=== PATIENT | male | born 1945 | race Caucasian/White ===

== ENCOUNTER → 2018-10-01 | Outpatient (CLI) | payer BC, MEDICARE, OTHER ==
[~2018-10-01] MED LIST: B COMPLEX1 EACH; CALCIUM600 MG; PROAIR HFA INH8.5 GM INH; VITAMIN D400 UNIT PO; XARELTO10 MG PO
--- NOTE | 2018-10-01 12:06 | Diagnostic Imaging Report ---
PROCEDURE: X-RAY CHEST, TWO VIEWS COMPARISON: Patients [facility], DX, RIBS UNILAT W/ CXR, 01/26/2011, 11:49. INDICATIONS: COUGH FINDINGS: LUNGS: Right upper lobe pulmonary nodule is slightly larger but still likely a benign process. Opacity in the lung bases represents scarring. PLEURA: No effusions or pneumothorax. HEART & MEDIASTINUM: The heart is within normal size-limits. Focal eventration of the right hemidiaphragm. BONES & SOFT TISSUES: No acute findings. Degenerative changes of the spine. Mild compression deformity of one of the midthoracic spine vertebral bodies likely is old. CONCLUSION: No acute thoracic abnormality. Milton Turpin D.O. Dictated by: Milton Turpin D.O. on 10/01/2018 at 12:16 Electronically approved by: Milton Turpin D.O. on 10/01/2018 at 12:16
== END ==
LOC: RAD 08:34
PROVIDERS: ATTEND Internal Medicine
DX: J44.1 Chronic obstructive pulmonary disease with (acute) exacerbation (principal)
CPT/HCPCS: 71046

== ENCOUNTER 2018-11-16 08:36 | Observation (INO) | payer BC, MEDICARE, OTHER ==
[~2018-11-16] VITALS: Ht 167.6 cm; Wt 93.1 kg
[2018-11-16] MEDS ORDERED: B COMPLEX1 EACH (08:49)
[2018-11-16] MEDS ORDERED: VITAMIN D400 UNIT PO (08:49)
[2018-11-16] MEDS ORDERED: CALCIUM600 MG (08:49)
[2018-11-16] MEDS ORDERED: PROAIR HFA INH8.5 GM INH (08:54)
[2018-11-16 09:25] LABS: BASOPHILS # (AUTO) 0.1 (0.0-0.1); BASOPHILS % 0.7 % (0.0-1.0); EOSINOPHILS # (AUTO) 0.2 (0.0-0.4); EOSINOPHILS % 3.3 % (0.0-6.0); HEMATOCRIT 44.8 % (38.2-49.6); HEMOGLOBIN 15.2 g/dL (14.0-18.0); LYMPHOCYTES # (AUTO) 1.7 (1.0-3.2); LYMPHOCYTES % 23.3 % (18.0-39.1); MEAN CORPUSCULAR HEMOGLOBIN 29.1 pg (28-32); MEAN CORPUSCULAR HGB CONC 33.9 g/dL (31-35); MEAN CORPUSCULAR VOLUME 85.8 fL (81-99); MONOCYTES # (AUTO) 0.6 (0.2-0.8); MONOCYTES % 8.2 % (4.4-11.3); NEUTROPHILS # (AUTO) 4.5 (2.1-6.9); NEUTROPHILS % 64.2 % (38.7-80.0); PLATELET COUNT 179 x10e3/uL (140-360); RED BLOOD COUNT 5.22 x10e6/uL (4.3-5.7); RED CELL DISTRIBUTION WIDTH 13.7 % (11.7-14.4)
--- NOTE | 2018-11-16 09:30 | NUR ---
RECEIVED PT IN ER RM 6 FROM TRIAGE WITH C/O SWELLING AND PAIN TO LT CALF, STARTED LAST NIGHT. PT REPORTS HIS MEASURED CALVES AND LEFT IS LARGER THAN RIGHT. THERE IS SLIGHT SWELLING NOTED TO LT CALF AT THIS TIME. CALVES MEASURED AND RIGHT CALF IS 15.5" AND LEFT CALF IS 16". NO WOUNDS OR BRUISING NOTED AT THIS TIME. PT DENIES PAIN AT THIS TIME. SL STARTED, BLOOD COLLECTED AND SENT TO LAB WITH URINE. PT ON CARDIAC, B/P AND PULSE OX MONITOR. EKG COMPLETED AND SIGNED BY DR. HEREDIA. PENDING RESULTS OF ALL STUDIES AT THIS TIME AND PT/ AWARE OF THIS.
--- NOTE | 2018-11-16 09:40 | Diagnostic Imaging Report ---
EXAMINATION: CHEST SINGLE (PORTABLE) COMPARISON: 10/01/2018 INDICATION: ^LE EDEMA ^[id number] ^0920 DISCUSSION: Frontal view of the chest obtained at 0913 hours. HEART AND MEDIASTINUM: The cardiomediastinal silhouette is unremarkable. LINES: None. LUNGS: Stable eventration of the right diaphragm. The lungs are well-inflated suggestive of small airways disease. Minimal discoid atelectasis over the right diaphragm. No pneumonia or pulmonary edema. PLEURA: No pleural effusion or pneumothorax. BONES AND SOFT TISSUES: No focal osseous lesion. The soft tissues are normal. IMPRESSION: Stable pulmonary hyperinflation and discoid atelectasis of the right lung base. No acute cardiopulmonary process. Signed by: Dr. Dionicio Partida MD on 11/16/2018 9:36 AM
[2018-11-16 09:47] LABS: ALANINE AMINOTRANSFERASE 26 IU/L (0-55); ALBUMIN 3.3 g/dL (3.5-5.0); ALKALINE PHOSPHATASE 59 IU/L (40-150); ANION GAP 12.2 mmol/L (8-16); BLOOD UREA NITROGEN 11 mg/dL (7-26); BUN/CREATININE RATIO 11 (6-25); CARBON DIOXIDE 23 mmol/L (22-29); CHLORIDE 104 mmol/L (98-107); CREATINE KINASE 110 IU/L (30-200); CREATININE, SERUM 0.96 mg/dL (0.72-1.25); EST GLOMERULAR FILTRATION RATE > 60 ML/MIN (60-); GLUCOSE 100 mg/dL (74-118); MAGNESIUM 2.2 MG/DL (1.3-2.1); POTASSIUM 4.2 mmol/L (3.5-5.1); SODIUM 135 mmol/L (136-145)
[2018-11-16 09:48] LABS: INR 0.87; PROTHROMBIN TIME 12.6 seconds (11.9-14.5)
--- NOTE | 2018-11-16 10:05 | NUR ---
VICE PRESIDENT PLANNING AT BEDSIDE FOR STUDY ORDERED.
[2018-11-16 10:12] LABS: PARTIAL THROMBOPLASTIN TIME 30.5 seconds (23.8-35.5)
[2018-11-16] MEDS ORDERED: SODIUM CHLORIDE 0.9% 500ML 500 ML IV ONE (10:15)
[2018-11-16] MEDS: ENOXAPARIN SODIUM INJ 100 MG/ML SYR SC SCH ×2 (10:25→21:53)
[2018-11-16 10:50] LABS: CLARITY,URINE CLEAR (CLEAR); COLOR,URINE YELLOW (YELLOW); LEUKOCYTE ESTERASE ,URINE NEGATIVE (NEGATIVE); NITRITE,URINE NEGATIVE (NEGATIVE); PROTEIN,URINE DIPSTICK NEGATIVE (NEGATIVE)
[2018-11-16 10:51] LABS: BILIRUBIN,URINE NEGATIVE (NEGATIVE); KETONES,URINE NEGATIVE (NEGATIVE); URINE UROBILINOGEN 0.2 mg/dL (0.2 - 1)
[2018-11-16 10:54] LABS: EPITHELIAL CELLS,URINE RARE /LPF; RBC,URINE 0-5 /HPF (0-5)
[2018-11-16] MEDS ORDERED: ONDANSETRON HCL INJ 2 MG/ML VIAL IV PRN (11:45)
--- NOTE | 2018-11-16 11:59 | Diagnostic Imaging Report ---
CT chest pulmonary embolism protocol CPT code: 75881 INDICATION: Leg swelling, DVT ^PE PROTOCOL ^[id number] ^1030 TECHNIQUE: Thin collimation axial images obtained through the level of the pulmonary arteries with additional imaging through the chest following the uneventful administration of 100 cc of low osmolar, nonionic intravenous contrast. Images reconstructed into coronal and sagittal MIPs for complete evaluation of the tortuous and overlapping pulmonary vascular structures and to reduce patient radiation dose. RADIATION DOSE: Total DLP: 623.0 mGy*cm Estimated effective dose: (DLP x 0.015 x size factor) mSv CTDIvol has been reviewed. It is below the limits set by the Radiation Protocol Committee (RPC). COMPARISON: Chest x-rays 11/16/2018, 10/01/2018. FINDINGS: Pulmonary artery: No filling defects are appreciated within the main, left, right, lobar or visualized segmental pulmonary arteries to suggest embolism. Main pulmonary artery measures 2.5 cm. Aorta: Mildly ectatic. No aneurysmal dilatation. No dissection. Lymph nodes: No enlarged axillary, supraclavicular, mediastinal, or hilar lymph nodes.. Thyroid: Normal in size without mass in the visualized parenchyma.. Mediastinum: The heart is top normal in size. Mild to moderate burden of coronary artery calcification. No pericardial effusion. There is a small hiatal hernia. Lungs: Right Lung: Mild burden of centrilobular emphysema. Nodule in the inferior upper lobe measures 5 mm. There is subsegmental atelectasis of the base of the lung over the diaphragm. No consolidation. Left Lung: Mild burden of centrilobular emphysema. Nodule the posterior lower lobe measures 6 mm (series 3, image 68). Nodule in the posterior lower lobe measures 0.9 x 1.1 cm (series 3, image 83). There is basilar atelectasis. Small focus of atelectasis or scar in the posterior lingula. Airways: Diffuse bronchial wall thickening. The airways are patent. Pleura: Calcified pleural plaque in the posterior left chest. Noncalcified pleural plaques in the anterior right chest and anterior left chest. No pleural effusions. Abdomen: Fatty atrophy of the pancreas. Diverticulosis coli.. Bones: Mild to moderate degenerative changes of the midthoracic spine with mild height loss of the T7, T8, and T9 vertebral bodies. The spinal canal is widely patent. No lytic or blastic lesions. Soft tissues: Unremarkable.. IMPRESSION: 1. No evidence of pulmonary embolus or aortic dissection. 2. Centrilobular emphysema and bibasilar atelectasis. Pulmonary nodules should be followed annually to confirm stability. 3. Calcified pleural plaques suggestive of asbestos exposure. Signed by: Dr. Dionicio Partida MD on 11/16/2018 11:56 AM
--- NOTE | 2018-11-16 13:22 | NUR ---
ATTEMPTED TO CALL REPORT, NURSE UNAVAILABLE AT THIS TIME. INFORMED MY CHARGE NURSE, TENZIN GEIGER OF THIS. WILL CALL BACK IN ABOUT 10 MINS REQUESTED.
[2018-11-16 13:45] VITALS: BP 140/77
[2018-11-16 13:56] VITALS: BP 140/77
--- NOTE | 2018-11-16 14:02 | History and Physical ---
CHIEF COMPLAINT: 1. Left leg pain. 2. Left leg swelling. HPI: This is 73-year-old male with a past medical history of DVT, PE in 2017 treated by Xarelto for 1 year, recently stopped few months ago Xarelto. The patient usually followed by Dr. Juan To, development manager. The patient had swelling of the left leg and pain since last few days. The patient was sent to ER today. In ER venous Doppler shows DVT. CT of the chest is pending, but no chest pain. No shortness of breath. No fever. No cough. No wheezing. No diarrhea. No constipation. No hematemesis, no hematuria, no melena. ALLERGIES: NO KNOWN DRUG ALLERGIES. PAST MEDICAL HISTORY 1. DVT, left leg. 2. Pulmonary embolism. 3. COPD. PAST SURGICAL HISTORY: None. HABITS: Quit smoking 40 years ago, quit drinking alcohol 40 years ago. No illicit drug use. SOCIAL HISTORY: Patient is , lives with his . Patient is retired for last few years. FAMILY HISTORY: No family history of DVT, PE or cancer. MEDICATION: None. REVIEW OF SYSTEMS GENERAL: Generalized fatigue and weakness. HEENT: No diplopia, no blurring of vision. CARDIOPULMONARY: No chest pain, no shortness of breath, no cough. ALIMENTARY SYSTEM: No nausea, no vomiting, no diarrhea, no constipation, no hematemesis, no melena. GENITOURINARY SYSTEM: No dysuria, no hematuria. MUSCULOSKELETAL SYSTEM: No joint pain. CENTRAL NERVOUS SYSTEM: No focal weakness. PHYSICAL EXAMINATION GENERAL: This is a 73-year-old male, who is alert and oriented x3. VITAL SIGNS: Temperature 98.7, pulse 83, respiratory rate 18, blood pressure 143/86. HEENT: Head atraumatic, normocephalic. Pupils are bilaterally equal and reactive to light. Extraocular muscles intact. Conjunctivae normal. Sclerae normal. Tongue is dry. NECK: Supple. No JVD, no carotid bruit. LUNGS: Clear to auscultation and percussion bilaterally. No added sounds. No wheezing. No rhonchi. HEART: S1 and S2. Regular rate and rhythm. No S3, no S4. No murmur. ABDOMEN: Soft. Nontender. No guarding, no rigidity. EXTREMITIES: Left leg calf tenderness, swelling, mild edema on right leg. Positive Homans signs. WOOD MECHANIST: Grossly nonfocal. LABORATORY DATA: CT of chest pending. Chest x-ray is normal. Chest x-ray shows stable pulmonary right lung base. CBC is normal. Urine is normal except trace blood. We will watch it. Sodium 135, potassium is normal at 4.2. BUN and creatinine is normal. Magnesium 2.2, albumin 3.3, LFT is normal. ASSESSMENT 1. 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 2. Past medical history of deep venous thrombosis and pulmonary embolism in 2017. 3. History of chronic obstructive pulmonary disease. PLAN: Venous Doppler and CT of the chest. Hematology consult by Dr. Juan To. Lovenox 90 mg subcutaneous q.12. Add Protonix 40 q.daily. CBC and BMP in the morning. Case discussed with patient and ER doctor. Condition and prognosis guarded. Job#: [id number] BROCK
[2018-11-16 16:05] VITALS: BP 128/81
[2018-11-16] MEDS ORDERED: IOPAMIDOL 370 MG/ML 200 ML INFUS..BTL INJ ONE (16:57)
[2018-11-16] MEDS ORDERED: SODIUM CHLORIDE 0.9% 50ML 50 ML ONE (16:57)
[2018-11-16 20:00] VITALS: BP 124/85
--- NOTE | 2018-11-16 22:45 | Consultation ---
DATE OF CONSULTATION: November 16, 2018 REQUESTING PHYSICIAN: Gold Pires MD SERVICE: Hematology/Oncology. REASON FOR CONSULTATION: Evaluation and management of patient with recurrent deep vein thrombosis. HISTORY OF PRESENTING ILLNESS: Mr. Kim is a very pleasant 73-year-old gentleman who is very well known to me as he is my clinic patient who was initially diagnosed with left leg deep vein thrombosis along with pulmonary embolism back in 2017, subsequently treated with anticoagulation with Xarelto for almost a year. He did well and underwent preventive screening which did not reveal any underlying disease process to cause thromboembolic disease. He did have pulmonary nodule, which remained stable. After discussion with the Pulmonary and Primary Service, the patient was taken off of anticoagulation. Today, he called with the complaint of left leg pain and swelling, which started a few days ago and got worsened, subsequently suggestive to come to the Emergency Department for further evaluation and recommendation. In the Emergency Department, he underwent Doppler of left lower leg revealing superficial femoral vein, popliteal vein and posterior tibial vein thrombosis resulting in started on anticoagulation with Lovenox and admitted to in-patient floor. The patient was recommended to get a CT of the chest to rule out pulmonary embolism. Presently, the patient is lying comfortably, not in acute distress, and breathing normally. Denies any nausea, vomiting, fever, chills, headache or blurring of vision. No genitourinary complaints. He also denies any recent trauma, travel, immobilization, or taking any hormonal agent. PAST MEDICAL HISTORY 1. Left leg DVT in 2017. 2. Pulmonary embolism in 2017. 3. COPD/emphysema. 4. Stable pulmonary nodule. PAST SURGICAL HISTORY: None. SOCIAL HISTORY: The patient is a former smoker, but quit long time ago. Denies alcohol use or illicit drug use. He lives with his . FAMILY HISTORY: No history of thromboembolic disease or cancer. ALLERGIES: No known drug allergies. CURRENT MEDICATIONS: Reviewed and as per electronic medical record. REVIEW OF SYSTEMS: A 14-point review of systems is negative except as mentioned above in history of presenting illness. PHYSICAL EXAMINATION VITAL SIGNS: Reviewed and as per electronic medical record. HEENT: PERRLA. Extraocular movements are intact. Head is atraumatic and normocephalic. NECK: Supple. CVS: S1, S2 audible. RESPIRATORY: Decreased bilateral air entry. ABDOMEN: Soft. Positive bowel sounds. EXTREMITIES: Left leg swelling. Negative cyanosis. NEURO: The patient is alert, awake and oriented. LABORATORY DATA: White blood cell count of 7.0, hemoglobin 15.2, hematocrit 44.8, and platelets 179. BUN 11 and creatinine 0.9. ASSESSMENT AND PLAN: Mr. Kim is a very pleasant 73-year-old gentleman who is very well known to me as he is my clinic patient and has a history of thromboembolic disease including left leg DVT and pulmonary embolism diagnosed back in 2017, subsequently treated with anticoagulation and completed 1 year of therapy approximately 4 months ago. Today, he is presented again with left leg swelling, which has started few days ago, subsequently underwent Doppler of lower extremity in the Emergency Department revealing left superficial femoral, popliteal and posterior tibial vein thrombosis. He also underwent CT angiogram which remained negative for pulmonary embolism; however, did show a stable pulmonary nodule as well as emphysema. The patient has been started on anticoagulation with Lovenox which he is tolerating well. I have reviewed the record and discussed current disease status with the patient in detail. Overall, this appeared to be unprovoked event of recurrent deep vein thrombosis. I have recommended him to be on anticoagulation indefinitely. He has been recommended to be switched to Xarelto 15 mg p.o. twice a day starting tomorrow morning. If he stays stable, he can be discharged tomorrow with instructions to follow with me in the outpatient setting. Pulmonary nodule: The patient has pulmonary nodule, which appeared to be stable, though need followup scans. Thank you Dr. Pires for the consult. I will continue to be available. Please call me with questions. Job#: [id number] ANDREW
[2018-11-17] VITALS: BP 149/82
[2018-11-17 04:00] VITALS: BP 143/71
[2018-11-17 04:53] LABS: BASOPHILS # (AUTO) 0.1 (0.0-0.1); BASOPHILS % 0.8 % (0.0-1.0); EOSINOPHILS # (AUTO) 0.3 (0.0-0.4); EOSINOPHILS % 3.7 % (0.0-6.0); HEMATOCRIT 43.2 % (38.2-49.6); HEMOGLOBIN 14.6 g/dL (14.0-18.0); LYMPHOCYTES # (AUTO) 1.9 (1.0-3.2); LYMPHOCYTES % 26.4 % (18.0-39.1); MEAN CORPUSCULAR HEMOGLOBIN 28.7 pg (28-32); MEAN CORPUSCULAR HGB CONC 33.8 g/dL (31-35); MONOCYTES # (AUTO) 0.6 (0.2-0.8); MONOCYTES % 7.9 % (4.4-11.3); NEUTROPHILS # (AUTO) 4.3 (2.1-6.9); NEUTROPHILS % 60.8 % (38.7-80.0); PLATELET COUNT 162 x10e3/uL (140-360); RED BLOOD COUNT 5.08 x10e6/uL (4.3-5.7); RED CELL DISTRIBUTION WIDTH 13.6 % (11.7-14.4)
[2018-11-17 05:10] LABS: BLOOD UREA NITROGEN 10 mg/dL (7-26); BUN/CREATININE RATIO 10 (6-25); CALCIUM 8.7 mg/dL (8.4-10.2); CARBON DIOXIDE 26 mmol/L (22-29); CHLORIDE 104 mmol/L (98-107); CREATININE, SERUM 0.97 mg/dL (0.72-1.25); EST GLOMERULAR FILTRATION RATE > 60 ML/MIN (60-); GLUCOSE 93 mg/dL (74-118); SODIUM 136 mmol/L (136-145)
--- NOTE | 2018-11-17 06:55 | NUR ---
rounded with gastroenterology professor nurse, patient resting quietly in bed and in no distress. Call galicia within reach
[2018-11-17 07:30] VITALS: BP 136/86
[2018-11-17] MEDS ORDERED: PANTOPRAZOLE SOD 40 MG TABEC PO SCH (07:30)
[2018-11-17 07:56] VITALS: BP 136/86
[2018-11-17] MEDS ORDERED: RIVAROXABAN 15 MG TABLET PO SCH (09:00)
[2018-11-17] MEDS ORDERED: XARELTO10 MG PO (11:26)
[2018-11-17 11:34] VITALS: BP 144/81
--- NOTE | 2018-11-17 12:15 | NUR ---
discharge instructions given to patient and , both verbalized understanding. Patient alert and oriented. IV removed at this time, catheter in tact and small dressing applied. Patient escorted from floor in a wheelchair in no distress.
--- NOTE | 2018-11-17 18:58 | Progress Note ---
DATE: November 17, 2018 FOLLOWUP NOTE CHIEF COMPLAINT: Patient with recurrent deep vein thrombosis, admitted to inpatient floor. Vitals signs reviewed as per electronic medical record. Laboratory data reviewed as per electronic medical record. ASSESSMENT AND PLAN: Mr. Kim is a very pleasant 73-year-old gentleman, who is very well known to me and has a history of left leg deep vein thrombosis and pulmonary embolism, who was presented with left leg swelling and pain. He underwent workup including Doppler revealing deep vein thrombosis. CT angiogram was also performed, which remained negative for pulmonary embolism. He has been started on Lovenox and we are going to switch to Xarelto 15 mg p.o. q.12 hourly. He already has some pills left over at home, which he will continue. He will roll picker 1-month supply from my clinic tomorrow morning for continuous anticoagulation. Thank you for this consult. Patient will follow up with Dr. Shay Pires as well as myself in outpatient setting. Job#: [id number] DALTON
== END 2018-11-17 12:25 | disposition home or self-care (01) ==
LOC: ER 08:36 → ERHOLD 10:58 → INTOOBSV 10:58 → IMCU 13:53
PROVIDERS: ADMIT Internal Medicine; ATTEND Internal Medicine
DX: I82.412 Acute embolism and thrombosis of left femoral vein (principal); I82.442 Acute embolism and thrombosis of left tibial vein; Z86.718 Personal history of other venous thrombosis and embolism; Z87.891 Personal history of nicotine dependence; Z82.49 Family history of ischemic heart disease and other diseases of the circulatory system; Z86.711 Personal history of pulmonary embolism; I82.432 Acute embolism and thrombosis of left popliteal vein; J44.9 Chronic obstructive pulmonary disease, unspecified; R91.1 Solitary pulmonary nodule
CPT/HCPCS: 36415 ×2; 71045; 71260; 80048; 80053; 81001; 82550; 82553; 83735; 83880; 84484; 85025 ×2; 85379; 85610; 85730; 93005; 93971; 96372; 99284; G0378 ×2; J1650; J7040; Q9967; S0164

== ENCOUNTER → 2019-12-17 | Outpatient (CLI) | payer BC, MEDICARE ==
--- NOTE | 2019-12-18 10:42 | Diagnostic Imaging Report ---
#[id number] - [id number] #MALE UNILATERAL RIGHT DIGITAL DIAGNOSTIC MAMMOGRAM POST-PROCEDURE IMAGING FOR MARKER PLACEMENT: 12/17/2019 Comparison is made to exams dated: 12/17/2019 ultrasound biopsy and 12/03/2019 mammogram - [facility]. Current study contains 2 films. A clip is noted in the right breast at the biopsy site. IMPRESSION: POST PROCEDURE MAMMOGRAM FOR MARKER PLACEMENT ATA ZUNIGA M.D. ct/penrad:12/17/2019 14:47:30 Manager Battery: Rylee Lazaro RT(R)(M), [facility] Mammogram BI-RADS: Post-procedure mammogram for marker placement
--- NOTE | 2019-12-18 10:42 | Diagnostic Imaging Report ---
THIS REPORT HAS BEEN AMENDED. #[id number] - [id number] ULTRASOUND GUIDED BIOPSY RIGHT BREAST WITH MARKING DEVICE INSERTED: 12/17/2019 PATIENT CONSENT: According to [facility] requirements, a time out was performed, correct site was localized and the patient was consented. Correlation is made to exams dated: 12/03/2019 ultrasound and 12/03/2019 mammogram - [facility]. An ultrasound guided biopsy using real-time ultrasound was performed for the 1.5 cm lobulated mass located in the right breast just lateral to the nipple in the retroareolar region. This was described on the previous ultrasound report. The skin was prepped in the usual manner. Local anesthetic was administered to the access site. A small incision was made in the breast. A 14 gauge biopsy needle was placed adjacent to the abnormality under ultrasound guidance. Once the needle was documented to be in the correct location, four specimens were obtained using an Achieve automated firing device. A clip was inserted at the biopsy site. The specimens were sent to the laboratory for pathological analysis. IMPRESSION: ULTRASOUND GUIDED BIOPSY Ultrasound guided biopsy of the 1.5 cm mass in the right breast central to the nipple in the retroareolar region was successful. Waiting for pathology results. A final report will be issued when these become available. ATA ZUNIGA M.D. ct/:12/17/2019 14:46:33 Shoulder Puncher: [facility], [facility] [id number] AMENDMENT: 12/26/2019 ATA ZUNIGA M.D. Pathology report from the biopsy has become available. The report indicates: Adipose tissue cores. Please refer to the full report, or consult the hospital pathologist, for additional details. Ultrasound finding therefore most likely is a fat lobule surrounded by gynecomastia. Six month followup mammogram and ultrasound is recommended.
== END ==
LOC: US 12:29
PROVIDERS: ATTEND Internal Medicine
DX: N63.10 Unspecified lump in the right breast, unspecified quadrant (principal)
CPT/HCPCS: 19083; 77065; 88305; A4648

== ENCOUNTER → 2020-01-28 | Outpatient (CLI) | payer BC, MEDICARE ==
--- NOTE | 2020-01-28 16:25 | Diagnostic Imaging Report ---
EXAM: CT Chest WITHOUT intravenous contrast 01/28/2020 1:29 PM INDICATION: Pulmonary nodule COMPARISON: Chest CT 11/16/2018 TECHNIQUE: Chest was scanned utilizing a multidetector helical scanner from the lung apex through the level of the adrenal glands without administration of IV contrast. Coronal and sagittal reformations were obtained. Routine protocol was performed. IV CONTRAST: None RADIATION DOSE: Total DLP: 259.6 mGy*cm. Dose modulation, iterative reconstruction, and/or weight based adjustment of the mA/kV was utilized to reduce the radiation dose to as low as reasonably achievable. COMPLICATIONS: None FINDINGS: LINES/ TUBES: None. LUNGS AND AIRWAYS: The central airways are patent. Mild upper lobe centrilobular emphysema. Unchanged 5 mm left lower lobe pulmonary nodule (series 601 image 82). No new suspicious pulmonary nodules. Mild bibasilar dependent subsegmental atelectasis. PLEURA: The pleural spaces are clear. HEART AND MEDIASTINUM: The thyroid gland is normal. No mediastinal, hilar or axillary lymphadenopathy. The heart is normal in size.. There is no pericardial effusion. UPPER ABDOMEN: No acute findings. BONES: No acute osseous injury. SOFT TISSUES: Unremarkable. IMPRESSION: Unchanged 5 mm left lower lobe pulmonary nodule. No new suspicious pulmonary nodules. No further imaging follow-up is necessary for this nodule. Signed by: Guadalupe Bettencourt MD on 01/28/2020 4:22 PM
== END ==
LOC: CT 13:17
PROVIDERS: ATTEND Internal Medicine Pulmonary Disease
DX: J98.4 Other disorders of lung (principal)
CPT/HCPCS: 71250

== ENCOUNTER → 2021-03-03 | Outpatient (CLI) | payer BC, MEDICARE | LOC: MAMMO 10:31 | PROVIDERS: ATTEND Internal Medicine | DX: N63.10 Unspecified lump in the right breast, unspecified quadrant (principal) | CPT/HCPCS: 77066 ==

== ENCOUNTER → 2021-06-13 | Outpatient (CLI) | payer BC, MEDICARE | LOC: MRI 10:35 | PROVIDERS: ATTEND Internal Medicine | DX: S63.8X1A Sprain of other part of right wrist and hand, initial encounter (principal) ==

== ENCOUNTER → 2022-09-22 | Outpatient (CLI) | payer BC, MEDICARE ==
[~2022-09-22] MED LIST changes: +IOPAMIDOL 370 MG/ML 100 ML INFUS..BTL INJ ONE; +SODIUM CHLORIDE 0.9% 500ML 500 ML ONE
[2022-09-22 09:20] LABS: CREATININE, SERUM 1.28 mg/dL (0.72-1.25)
== END ==
LOC: CT 08:19
PROVIDERS: ATTEND Internal Medicine
DX: R91.1 Solitary pulmonary nodule (principal)
CPT/HCPCS: 36415; 71260; 82565; 84520; J7040; Q9967

== ENCOUNTER 2024-05-25 12:40 | Emergency (ER) | payer BC, MEDICARE ==
[~2024-05-25] VITALS: Ht 167.6 cm; Wt 89.8 kg
[~2024-05-25 12:40] MED LIST changes: -IOPAMIDOL 370 MG/ML 100 ML INFUS..BTL INJ ONE; -SODIUM CHLORIDE 0.9% 500ML 500 ML ONE
[2024-05-25 12:44] VITALS: PULSE 71; RESP 15; TEMP 98.4
[2024-05-25] MEDS: HYDROCODONE/APAP 5MG-325MG TAB PO ONE (14:05)
[2024-05-25] MEDS: KETOROLAC TROMETHAMINE 30 MG/ML VIAL IM STA (14:06)
[2024-05-25] MEDS ORDERED: ULTRAM 50MG50 MG PO (14:43)
[2024-05-25] MEDS: CLOPIDOGREL BISULFATE 75 MG TAB PO ONE (14:53)
[2024-05-25] MEDS: ENOXAPARIN INJ 80 MG/0.8 ML SYR SC STA (14:53)
[2024-05-25 14:55] VITALS: BP 139/75; PULSE 76; RESP 17; TEMP 98; O2SAT 98
== END 2024-05-25 14:57 | disposition home or self-care (01) ==
LOC: ER 13:00
DX: M25.511 Pain in right shoulder (principal); X50.0XXA Overexertion from strenuous movement or load, initial encounter; Y92.89 Other specified places as the place of occurrence of the external cause; J44.9 Chronic obstructive pulmonary disease, unspecified; Z86.718 Personal history of other venous thrombosis and embolism
CPT/HCPCS: 73030; 99283; J1885

== ENCOUNTER → 2024-11-28 | Outpatient (REF) | payer BC, MEDICARE ==
[~2024-11-28] MED LIST changes: +ULTRAM 50MG50 MG PO
== END ==
LOC: MRI 09:36
PROVIDERS: ATTEND Orthopaedic Surgery
DX: M25.511 Pain in right shoulder (principal); M25.512 Pain in left shoulder